=== PATIENT | female | born 1985 | race Caucasian/White ===

== ENCOUNTER 2017-10-01 21:25 | Emergency (ER) | payer OTHER ==
[~2017-10-01] VITALS: Ht 162.6 cm; Wt 94.8 kg
--- NOTE | ~2017-10-01 | EKG ---
[place] [address] [facility] [place] [address] ELECTROCARDIOGRAM REPORT Name: ALIREZAEVY Room #: [facility]P [facility] [id number] Admission: 10/01/17 Attend Phys: Discharge: 10/01/17 Date of : 85 Report #: [id number] THIS REPORT FOR: //name// [facility] ED Test Date: 2017-10-01 Test Time: 21:35:07 Pat Name: EVY LAY Department: Room: Gender: F Real Estate Representative: AMBROSIO : 1985 Requested By: Rea Hearn Order Number: [id number] MD: Matt Hutton Measurements Intervals [place] Rate: 55 P: 39 KS: 159 QRS: 14 QRSD: 77 T: 8 QT: 383 QTc: 367 Interpretive Statements Sinus bradycardia Otherwise no significant abnormality No previous ECG available for comparison Electronically Signed On 10-02-2017 8:37:00 CDT by Matt Hutton [email or web address] <ELECTRONICALLY SIGNED> By: Matt Hutton MD, [facility] 10/02/17 0837 [id number] 2135 Matt Hutton MD, FACC /EPI
[2017-10-01] MEDS ORDERED: NOHOMEMEDICATIONS (22:16)
[2017-10-01 22:28] LABS: ABSOLUTE NEUTROPHILS 5.3 thou/uL (1.4-8.2); BASOPHILS 0.5 % (0.0-2.0); EOSINOPHILS 1.5 % (0.0-3.0); HEMATOCRIT 38.6 % (37.0-47.0); HEMOGLOBIN 12.9 gm/dL (12.0-15.0); LYMPHOCYTES 29.6 % (24.0-44.0); MCH 28.4 pg (26.0-34.0); MCHC 33.3 g/dL (28.0-37.0); MCV 85.3 fL (80.0-100.0); MONOCYTES 6.5 % (1.0-8.0); PLATELET COUNT 339 thou/uL (150-400); POLYS 61.9 % (36.0-66.0); RBC 4.53 mil/uL (4.20-5.00); RDW 13.5 % (10.5-14.5); WBC 8.5 thou/uL (4.0-11.0)
[2017-10-01 22:36] LABS: ANION GAP 8 mmol/L (7-16); BUN 17 mg/dL (7-18); CALCIUM 8.6 mg/dL (8.5-10.1); CHLORIDE 105 mmol/L (98-107); CO2 26 mmol/L (21-32); CREATININE 0.9 mg/dL (0.6-1.0); GLUCOSE 101 mg/dL (74-106); POTASSIUM 3.7 mmol/L (3.5-5.1); SODIUM 139 mmol/L (136-145)
[2017-10-01 22:44] LABS: ALBUMIN 3.6 g/dL (3.4-5.0); SGOT 14 U/L (15-37); SGPT 19 U/L (30-65); TOTAL BILIRUBIN 0.4 mg/dL (<0.1-1.0); TOTAL PROTEIN 7.8 g/dL (6.4-8.2); TROPONIN-I <0.06 ng/mL (<0.06)
[2017-10-01] MEDS ORDERED: TOPROL XL25 MG PO (23:20)
== END 2017-10-01 23:45 | disposition home or self-care (01) ==
LOC: ER 21:25
PROVIDERS: Physician Assistant
DX: R07.89 Other chest pain (principal); R00.2 Palpitations

== ENCOUNTER 2018-03-03 06:16 | Inpatient (IN) | payer OTHER ==
[2018-03-03] VITALS (7 sets, daily range): BP systolic 99–124; BP diastolic 56–91
[~2018-03-03] VITALS: Ht 165.1 cm; Wt 97.6 kg
--- NOTE | ~2018-03-03 | EKG ---
[address] [place] [address] ELECTROCARDIOGRAM REPORT Name: EVY LAY Room #: 215-P ADM IN M.R.#: [id number] Admission: 03/03/18 Attend Phys: Will Don Discharge: Date of : 85 Report #: [id number] THIS REPORT FOR: //name// [facility] ED Test Date: 2018-03-03 Test Time: 06:29:56 Pat Name: EVY LAY Department: Room: [facility] Gender: F Oliving Machine Operator: Violetta HUYNH : 1985 Requested By: Order Number: [id number] MD: Hugh Mckeon Measurements Intervals [place] Rate: 138 P: AL: QRS: 25 QRSD: 76 T: -6 QT: 299 QTc: 453 Interpretive Statements Atrial fibrillation Low voltage, precordial leads Compared to ECG 10/01/2017 21:35:07 Sinus bradycardia no longer present Electronically Signed On 03-04-2018 11:12:36 RHINESTONE SETTER by Hugh Mckeon [email or web address] <ELECTRONICALLY SIGNED> By: Hugh Mckeon MD 03/04/18 1112 8 8 Hugh Mckeon MD /ANNE
--- NOTE | ~2018-03-03 | EKG ---
[address] [address] ELECTROCARDIOGRAM REPORT Name: ALIREZAEVY Room #: 215-P ADM IN M.R.#: [id number] Admission: 03/03/18 Attend Phys: Will Don Discharge: Date of : 85 Report #: [id number] THIS REPORT FOR: //name// [facility] Test Date: 2018-03-04 Test Time: 05:57:21 Pat Name: EVY LAY Department: Room: 215 P Gender: F Veterinary Surgery Technologist: KAMILA : 1985 Requested By: Hugh Mckeon Order Number: [id number] MD: Hugh Mckeon Measurements Intervals [place] Rate: 65 P: 44 MN: 174 QRS: 26 QRSD: 78 T: 13 QT: 401 QTc: 417 Interpretive Statements Sinus rhythm Compared to ECG 10/01/2017 21:35:07 Sinus bradycardia no longer present Electronically Signed On 03-04-2018 11:20:54 CONSTRUCTION TRADES TEACHER by Hugh Mckeon [email or web address] <ELECTRONICALLY SIGNED> By: Hugh Mckeon MD 03/04/18 1120 0557 0557 Hugh Mckeon MD /ANNE
--- NOTE | ~2018-03-03 | HC ---
[facility] [address] [place] [address] CONSULTATION Name: EVY LAY Room #: 215-P [facility] IN M.R.#: [id number] Admission: 03/03/18 Attend Phys: Will Don Discharge: 03/04/18 Date of : 85 Report #: [id number] THIS REPORT FOR: //name// CC: Martha Don DATE OF SERVICE: 03/03/2018 REASON FOR CONSULTATION: Atrial fibrillation. HISTORY OF PRESENT ILLNESS: The patient is a 32-year-old with a history of longstanding supraventricular tachycardia. She has previously seen a facilities locator and was placed on a beta patricia for a few months, which she has since discontinued. Last night, she went out and was partying and drank somewhat excessively, got home and threw up a few times and around 3 in the morning after vomiting, she noticed that her heart was palpating and racing rapidly. She came to the Emergency Room and was found to be in atrial fibrillation. She was admitted for further evaluation. She denies problems with chest pain or chest tightness. She denies PND or orthopnea. She denies presyncope or syncope. She reports that she gets SVT quite frequently that can last anywhere from a couple of seconds to several minutes, usually worse with activity and alleviated with rest. PAST MEDICAL HISTORY: 1. SVT. 2. Prior ACL repair. SOCIAL HISTORY: Does not smoke. 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 FAMILY HISTORY: Noncontributory. ALLERGIES: None. MEDICATIONS: Previously on metoprolol, but has been on this for a while. REVIEW OF SYSTEMS: Twelve-point review of systems. GENERAL: No fevers or chills. HEENT: No blurred vision or sore throat. CARDIOVASCULAR: No chest pain. PULMONARY: No productive cough. GASTROINTESTINAL: No nausea or vomiting. GENITOURINARY: No dysuria. MUSCULOSKELETAL: No myalgias or arthralgias. ENDOCRINE: No heat or cold intolerance. NEUROLOGIC: No focal weakness or prior strokes. [facility] [address] [place] [address] CONSULTATION Name: EVY LAY Room #: 215-[facility] IN M.R.#: [id number] Admission: 03/03/18 Attend Phys: Will Emre Jillian Discharge: 03/04/18 Date of : 85 Report #: [id number] PHYSICAL EXAMINATION: VITAL SIGNS: Temperature is 36.7, pulse 102, respirations 22, blood pressure 124/91, sats 100%. GENERAL: She is in no acute distress, alert and oriented x 3. HEENT: Oropharynx is clear. Sclerae are anicteric. NECK: Supple, with no thyromegaly. HEART: Irregularly irregular with no murmurs, rubs, gallops. LUNGS: Clear to auscultation bilaterally. ABDOMEN: Soft, nontender, nondistended with no hepatosplenomegaly. EXTREMITIES: There is no clubbing, cyanosis, edema. NEUROLOGICAL: Cranial nerves 2-12 are intact. LABORATORY DATA: White count 6, hemoglobin 13, platelets 341. Coags: INR is 1. Chemistries: Sodium 143, potassium 3.4, BUN 9, creatinine 0.7. TSH is normal. test was normal. LDL is 90. A 12-lead EKG shows atrial fibrillation with rapid ventricular response. Telemetry shows a-fib with controlled ventricular response, on diltiazem drip. Her chest x-ray shows no acute process. ASSESSMENT: 1. Atrial fibrillation, new onset, likely secondary to excess alcohol intake. 2. Supraventricular tachycardia. 3. Hypokalemia. In summary, the patient is a 32-year-old with a history of SVT, who drank excessively last night and now appears to be in atrial fibrillation. It is possible that her SVT triggered her to go into atrial fibrillation versus her excessive drinking caused her to have a-fib. This started around 3:00 a.m. We will continue with rate control and I will give her a dose of flecainide 200 mg x 1 to see if we can convert her to sinus rhythm. We will monitor on telemetry overnight. We will get an echocardiogram tomorrow. I will follow up with her as an outpatient to treat her arrhythmias. <ELECTRONICALLY SIGNED> By: Hugh Mckeon MD 03/06/18 1548 1055 53 Hugh Mckeon MD /nt
--- NOTE | ~2018-03-03 | 2DMMODE ---
[facility] [address] [place] [address] 2 D/M-MODE ECHOCARDIOGRAM Name: EVY LAY Room #: 215-P ADM IN M.R.#: [id number] Admission: 03/03/18 Attend Phys: Will Frias Discharge: Date of : 85 Date of Service: 03/04/18 0954 Report #: [id number] THIS REPORT FOR: //name// APPROVED REPORT Study performed: 03/04/2018 08:43:04 EXAM: Comprehensive 2D, Doppler, and color-flow Echocardiogram Patient Location: In-Patient Room #: 215 Status: routine BSA: 2.04 HR: 60 bpm BP: 114/55 mmHg Rhythm: NSR Other Information Study Quality: Good Indications new onset afib 2D Dimensions RVDd: 33.20 mm IVSd: 9.53 (7-11mm) LVOT Diam: 19.37 (18-24mm) LVDd: 45.10 mm PWd: 8.13 (7-11mm) Ascending Ao: 23.66 (22-36mm) LVDs: 28.80 (25-40mm) Aortic Root: 21.87 mm IVC: 18.00 mm Volumes Left Atrial Volume (Systole) Single Plane 4CH: 52.24 mL Single Plane 2CH: 65.88 mL LA ESV Index: 31.00 mL/m2 Aortic Valve AoV Peak Ho.: 1.54 m/s AO Peak Gr.: 9.45 mmHg LVOT Max P.84 mmHg LVOT Max V: 1.31 m/s ESTEE Vmax: 2.51 cm2 Mitral Valve E/A Ratio: 2.6 MV Decel. Time: 228.64 ms MV E Max Ho.: 1.01 m/s [facility] [address] [place] [address] 2 D/M-MODE ECHOCARDIOGRAM Name: LAYEVY Room #: 215-[facility] IN .R.#: [id number] Admission: 03/03/18 Attend Phys: Will Frias Discharge: Date of : 85 Date of Service: 03/04/18 0954 Report #: [id number] MV A Ho.: 0.39 m/s MV PHT: 66.31 ms IVRT: 62.28 ms Pulmonary Valve PV Peak Ho.: 1.28 m/s PV Peak Gr.: 6.57 mmHg Pulmonary Vein P Vein S: 0.76 m/s P Vein A: 0.24 m/s P Vein D: 0.64 m/s P Vein A Dur.: 87.7 msec P Vein S/D Ratio: 1.19 Tricuspid Valve TR Peak Ho.: 2.29 m/s RAP Estimate: 5.00 mmHg TR Peak Gr.: 20.94 mmHg PA Pressure: 26.00 mmHg Left Ventricle The left ventricle is normal size. There is normal left ventricular wall thickness. The left ventricular systolic function is normal. The left ventricular ejection fraction is within the normal range. LVEF is 60%. The left ventricular diastolic function is normal. Right Ventricle The right ventricle is normal size. The right ventricular systolic function is normal. Atria The left atrium size is normal. The right atrium size is normal. Aortic Valve The aortic valve is normal in structure. No aortic regurgitation is present. There is no aortic valvular stenosis. Mitral Valve The mitral valve is normal in structure. There is no mitral valve regurgitation noted. No evidence of mitral valve stenosis. Tricuspid Valve The tricuspid valve is normal in structure. Trace tricuspid regurgitation. PAP is estimated at 26 mmHg. Pulmonic Valve The pulmonary valve is normal in structure. Trace pulmonic regurgitation. [facility] [address] [place] [address] 2 D/M-MODE ECHOCARDIOGRAM Name: EVY LAY Room #: 215-P [facility] IN M.R.#: [id number] Admission: 03/03/18 Attend Phys: Will Frias Discharge: Date of : 85 Date of Service: 03/04/18 0954 Report #: [id number] Great Vessels The aortic root is normal in size. IVC is normal in size and collapses >50% with inspiration. Pericardium There is no pericardial effusion. <Conclusion> The left ventricle is normal size. There is normal left ventricular wall thickness. The left ventricular systolic function is normal. The left ventricular diastolic function is normal. The right ventricle is normal size. The left atrium size is normal. The aortic valve is normal in structure. The mitral valve is normal in structure. Trace tricuspid regurgitation. PAP is estimated at 26 mmHg. <ELECTRONICALLY SIGNED> By: Solitario Segovia MD 03/04/18 0954 3 3 Solitario Segovia MD /INF
[~2018-03-03 06:16] MED LIST: NOHOMEMEDICATIONS; TOPROL XL25 MG PO
[2018-03-03 07:21] LABS: ABSOLUTE NEUTROPHILS 4.8 thou/uL (1.4-8.2); BASOPHILS 0.6 % (0.0-2.0); EOSINOPHILS 0.4 % (0.0-3.0); HEMATOCRIT 41.6 % (37.0-47.0); HEMOGLOBIN 13.8 gm/dL (12.0-15.0); LYMPHOCYTES 22.7 % (24.0-44.0); MCH 28.4 pg (26.0-34.0); MCHC 33.2 g/dL (28.0-37.0); MCV 85.4 fL (80.0-100.0); MONOCYTES 4.3 % (1.0-8.0); PLATELET COUNT 341 thou/uL (150-400); RBC 4.87 mil/uL (4.20-5.00); RDW 14.4 % (10.5-14.5); WBC 6.6 thou/uL (4.0-11.0)
[2018-03-03 07:27] LABS: CALCIUM 8.6 mg/dL (8.5-10.1); CREATININE 0.7 mg/dL (0.6-1.0); POTASSIUM 3.4 mmol/L (3.5-5.1)
[2018-03-03 07:31] LABS: APTT 27.2 Seconds (24.5-32.8); PROTIME 10.5 Seconds (9.3-11.4)
[2018-03-03] MEDS ORDERED: KEFLEX500 M1 PO (09:05)
[2018-03-03 09:14] LABS: CHOLESTEROL 161 mg/dL (<200); HDL CHOLESTEROL 52 mg/dL (>40); LDL CHOLESTEROL 90 mg/dL (<100); TC:HDL 3.1 Ratio (Not establshd); TRIGLYCERIDE 96 mg/dL (<150); VLDL 19 mg/dL (<40)
[2018-03-04 00:04] VITALS: BP 110/63
[2018-03-04 05:11] VITALS: BP 114/55
[2018-03-04 08:12] VITALS: BP 125/88
[2018-03-04] MEDS ORDERED: TOPROL XL25 MG PO (09:41)
[2018-03-04 11:16] VITALS: BP 126/88
[2018-03-04 12:18] VITALS: BP 126/88
== END 2018-03-04 13:07 | disposition home or self-care (01) | DRG 310 ==
LOC: ER 06:16 → EROBS 08:27 → 2N 08:27
PROVIDERS: Emergency Medicine; Hospitalist
DX: I48.91 Unspecified atrial fibrillation (principal); F10.20 Alcohol dependence, uncomplicated; I47.1 Supraventricular tachycardia; I48.92 Unspecified atrial flutter; E87.6 Hypokalemia; Z79.01 Long term (current) use of anticoagulants
CPT/HCPCS: 10081

== ENCOUNTER → 2018-08-16 | Outpatient (CLI) | payer OTHER ==
[~2018-08-16] VITALS: Ht 162.6 cm; Wt 97.5 kg
[~2018-08-16] MED LIST changes: +ALLEGRA-D 12 H1 EAC1 PO; +KEFLEX500 M1 PO; +THERA-M1 EAC1 PO
--- NOTE | ~2018-08-16 | P ---
[facility] [place] [address] [place] [address] PROCEDURE REPORT Name: ALIREZAEVY DIAZLEY [facility] [id number] Admission: 08/16/18 ������������������ Attend Phys: Hugh Mckeon MD Discharge: ������������������ Date of : 85 Report #: [id number] THIS REPORT FOR: //name// CC: Martha Mckeon DATE OF SERVICE: 08/16/2018 PREOPERATIVE DIAGNOSES: 1. Atrial tachycardia. 2. Atrial fibrillation. POSTOPERATIVE DIAGNOSES: 1. Atrial tachycardia. 2. Atrial fibrillation. PROCEDURES PERFORMED: 1. Comprehensive electrophysiology study, CPT CODE 12450. 2. Electrophysiology with left atrial pacing and recording, CPT code 77462. 3. Program stimulation and pacing after IV drug infusion, CPT code 65941. The patient is a 33-year-old female with a history of SVT and admission in the past for paroxysmal atrial fibrillation in the presence of excessive alcohol intake. I have followed her in the outpatient clinic and she has had some episodes of what appears to be SVT, possible atrial tachycardia, on a cardiac care nurse and she is here for an EP study. ANESTHESIA: The patient underwent MAC anesthesia with no anesthesia related complications. DESCRIPTION OF PROCEDURE: The patient underwent informed consent. We discussed the details of the procedure including the risks, which include, but not limited to, bleeding, vascular damage, stroke, OH as well as damage to the [place] conduction system requiring permanent pacemaker. She understood these risks and is willing to proceed. The patient was brought to the EP laboratory in a fasting and unsedated state and prepped and draped in a sterile fashion. I injected lidocaine to the bilateral groin regions and obtained access in the bilateral femoral veins placing an 8 and 6 Romansh short sheath in the right femoral vein and 6 and 7 Romansh short sheath in the left femoral vein using the modified Seldinger technique. Next, 3 quadripolar catheters were placed at the HRA, His, and RV positions. A decapolar catheter was placed at the coronary sinus for left atrial pacing and recording. A basic EP study was performed. At baseline, the patient was in sinus rhythm [facility] [address] [place] [address] PROCEDURE REPORT Name: EVY LAY Room #: REG [facility].#: [id number] Admission: 08/16/18 ������������������ Attend Phys: Hugh Mckeon MD Discharge: ������������������ Date of : 85 Report #: [id number] with sinus cycle length of 620 milliseconds, MT interval 130 milliseconds, QRS duration 80 milliseconds, QT interval 315 milliseconds, AH interval 75 milliseconds, HV interval 36 milliseconds. Atrial burst pacing was performed. AV block was noted at 290 milliseconds. Atrial ERP was noted at 290 milliseconds at [address] cycle length. There is no evidence of a jump or AV chetna echoes. Ventricular pacing was performed and VA block was noted at 290 milliseconds. Ventricular ERP was noted at 190 milliseconds at a [address] cycle length. Retrograde conduction was both midline and decremental. Aggressive atrial burst pacing was performed and then, I performed a double atrial extrastimuli and the patient would have some short little bursts of an atrial tachycardia that last 1-2 seconds, but nothing was sustained. Next, isoproterenol infusion was increased to 2 mcg per minute and aggressive atrial burst pacing was performed. AV block was noted at 250 milliseconds. Single and double extrastimuli were delivered and again, no SVT was induced. The isoproterenol infusion was increased to 5 mcg per minute. Again, we performed aggressive atrial burst pacing and the patient did not have any spontaneous atrial tachycardia. Isoproterenol was decreased to 1 mcg per minute. We continued testing and the patient did have one short run of atrial fibrillation lasting 28 seconds, which converted on its own. As isoproterenol was turned off, AV block was noted at 300 milliseconds, atrial ERP was noted at 240 milliseconds at [address] cycle length and no SVT was induced. Post ablation, she was in sinus rhythm. As such, she had no inducible arrhythmias. Catheters and sheaths were pulled and hemostasis obtained. CONCLUSIONS: 1. Normal SA chetna function. 2. Normal AV chetna function. 3. Normal His-Purkinje function. 4. No inducible arrhythmias on or off isoproterenol. 5. Induction of atrial fibrillation, on high dose isoproterenol of unknown clinical significance. ��������������������������������������������� ���������������������������������������� By: ��������������������������������������������� 1309 0356 Hugh Mckeon MD /nt
[2018-08-16 07:31] LABS: ABSOLUTE NEUTROPHILS 5.1 thou/uL (1.4-8.2); BASOPHILS 0.4 % (0.0-2.0); EOSINOPHILS 1.8 % (0.0-3.0); HEMATOCRIT 38.2 % (37.0-47.0); HEMOGLOBIN 12.8 gm/dL (12.0-15.0); LYMPHOCYTES 24.4 % (24.0-44.0); MCH 28.7 pg (26.0-34.0); MCHC 33.6 g/dL (28.0-37.0); MCV 85.4 fL (80.0-100.0); PLATELET COUNT 277 thou/uL (150-400); POLYS 67.4 % (36.0-66.0); RBC 4.47 mil/uL (4.20-5.00); WBC 7.6 thou/uL (4.0-11.0)
[2018-08-16 07:36] LABS: CALCIUM 8.9 mg/dL (8.5-10.1); CREATININE 0.8 mg/dL (0.6-1.0); POTASSIUM 4.3 mmol/L (3.5-5.1)
[2018-08-16 07:41] LABS: APTT 28.4 Seconds (24.5-32.8)
[2018-08-16 07:42] LABS: ALBUMIN 3.3 g/dL (3.4-5.0); TOTAL BILIRUBIN 0.5 mg/dL (<0.1-1.0); TOTAL PROTEIN 7.1 g/dL (6.4-8.2)
[2018-08-16 07:45] VITALS: BP 118/69
== END | disposition home or self-care (01) ==
LOC: CATH 08-15 10:59
PROVIDERS: Internal Medicine Cardiovascular Disease
DX: I48.0 Paroxysmal atrial fibrillation (principal); I47.1 Supraventricular tachycardia; Z79.899 Other long term (current) drug therapy; R07.9 Chest pain, unspecified
CPT/HCPCS: 62110; 62900; 70005

== ENCOUNTER 2019-05-14 19:31 | Emergency (ER) | payer OTHER ==
[~2019-05-14] VITALS: Ht 162.6 cm; Wt 99.8 kg
[2019-05-14 20:18] LABS: BASOPHILS 0.5 % (0.0-2.0); MCH 28.2 pg (26.0-34.0); WBC 9.9 thou/uL (4.0-11.0)
[2019-05-14 20:19] LABS: ABSOLUTE NEUTROPHILS 6.8 thou/uL (1.4-8.2); EOSINOPHILS 1.5 % (0.0-3.0); HEMATOCRIT 40.2 % (37.0-47.0); LYMPHOCYTES 23.7 % (24.0-44.0); MCHC 32.5 g/dL (28.0-37.0); MCV 86.7 fL (80.0-100.0); MONOCYTES 5.2 % (1.0-8.0); PLATELET COUNT 360 thou/uL (150-400); POLYS 69.1 % (36.0-66.0); RBC 4.63 mil/uL (4.20-5.00); RDW 14.1 % (10.5-14.5)
[2019-05-14 20:31] LABS: CALCIUM 8.7 mg/dL (8.5-10.1); CREATININE 0.9 mg/dL (0.6-1.0); POTASSIUM 3.4 mmol/L (3.5-5.1)
[2019-05-14 20:38] LABS: ALBUMIN 3.3 g/dL (3.4-5.0); DIRECT BILIRUBIN 0.2 mg/dL (<0.1-0.2); MAGNESIUM 1.7 mg/dL (1.8-2.4); TOTAL BILIRUBIN 0.6 mg/dL (<0.1-1.0); TOTAL PROTEIN 7.4 g/dL (6.4-8.2)
[2019-05-14] MEDS ORDERED: TESSALON PERLE100 MG PO (21:24)
[2019-05-14 21:48] VITALS: BP 125/78
--- NOTE | 2019-05-15 08:46 | EKG ---
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: LUAN : 1985 Requested By: Linda Posadas Order Number: [id number] MD: Matt Hutton Measurements Intervals [place] Rate: 95 P: 42 MN: 136 QRS: 11 QRSD: 78 T: -22 QT: 325 QTc: 409 Interpretive Statements Sinus rhythm Borderline T abnormalities, diffuse leads Baseline wander in lead(s) V6 Compared to ECG 03/04/2018 05:57:21 T-wave abnormality now present Electronically Signed On 05-15-2019 8:45:06 HOSPICE PHYSICIAN by Matt Hutton [email or web address] <ELECTRONICALLY SIGNED> By: Matt Hutton MD, FAC 05/15/19 0845 36 36 Matt Hutton MD, FAC /EPI
== END 2019-05-14 21:50 | disposition home or self-care (01) ==
LOC: ER 19:31
PROVIDERS: Emergency Medicine
DX: R00.2 Palpitations (principal); R05 Cough